=== PATIENT | female | born 1990 | race Caucasian/White ===

== ENCOUNTER 2017-02-11 07:33 | Inpatient (IN) | payer OTHER ==
[2017-02-11] MEDS ORDERED: CITRIC ACID/SODIUM CITRATE ORAL SOLN 15 ML UDCUP ONE (07:59)
[2017-02-11] MEDS ORDERED: MISOPROSTOL 0.2 MG TABLET ONE (07:59)
[2017-02-11] MEDS ORDERED: CEFAZOLIN 2 GM/D5W RTU 2 GM/50 ML RTUPB IV ONE (08:00)
[2017-02-11] MEDS ORDERED: OXYTOCIN 10 UNIT/ML VIAL ONE (08:10)
[2017-02-11] MEDS ORDERED: OXYTOCIN/NORMAL SALINE 20 UNIT/1,000 ML RTUINJ ONE (08:11)
[2017-02-11] MEDS ORDERED: ONDANSETRON HCL INJ/PF 4 MG/2 ML SDV ONE (08:11)
[2017-02-11] MEDS ORDERED: PHENYLEPHRINE HCL INJ/PF 10 MG/1 ML SDV ONE (08:11)
[2017-02-11] MEDS ORDERED: ACETAMINOPHEN 100 ML IV ONE (08:11)
[2017-02-11] MEDS ORDERED: FENTANYL CITRATE INJ/PF 100 MCG/2 ML AMPUL ONE (08:17)
[2017-02-11 08:36] LABS: APPEARANCE,URINE SLIGHTLY-CLOUDY; BILIRUBIN,URINE NEGATIVE (NEGATIVE); GLUCOSE, URINE NEGATIVE (NEGATIVE); KETONES,URINE NEGATIVE (NEGATIVE); LEUKOCYTE ESTERASE,URINE SMALL (NEGATIVE); NITRITE,URINE NEGATIVE (NEGATIVE); PROTEIN,URINE NEGATIVE (NEGATIVE); URINE SPECIFIC GRAVITY 1.006; UROBILINOGEN,URINE NEGATIVE mg/dL (<2.0)
[2017-02-11 08:44] LABS: ABSOLUTE BASOPHILS # (AUTO) 0.1 10^3/uL (0.0-0.2); ABSOLUTE LYMPHOCYTES (AUTO) 2.2 10^3/uL (0.5-4.7); ABSOLUTE MONOCYTES (AUTO) 0.8 10^3/uL (0.1-1.4); ABSOLUTE NEUT (AUTO) 9.8 10^3/uL (1.7-8.2); BASOPHILS % (AUTO) 0.7 % (0-2); EOSINOPHILS % (AUTO) 0.1 % (0-6); HEMATOCRIT 32.2 % (36.0-47.0); HGB HCT DIFFERENCE 0.8; LYMPHOCYTES % (AUTO) 17.1 % (13-45); MEAN CORPUSCULAR HEMOGLOBIN 30.4 pg (27.0-33.4); MEAN CORPUSCULAR HGB CONC 34.1 g/dL (32.0-36.0); MEAN CORPUSCULAR VOLUME 89 fl (80-97); MONOCYTES % (AUTO) 6.3 % (3-13); RED BLOOD COUNT 3.61 10^6/uL (3.72-5.28); RED CELL DISTRIBUTION WIDTH 13.8 % (11.5-14.0); SEGMENTED NEUTROPHILS % (AUTO) 75.8 % (42-78); WHITE BLOOD COUNT 12.9 10^3/uL (4.0-10.5)
[2017-02-11 08:54] LABS: URINE BARBITURATES SCREEN NEGATIVE; URINE METHADONE SCREEN NEGATIVE; URINE OPIATES LOW NEGATIVE; URINE PHENCYCLIDINE SCREEN NEGATIVE
[2017-02-11] MEDS ORDERED: MEASLES,MUMPS&RUBELLA VACC/PF 0.5 ML VIAL SUBCUT PRN ×2 (09:56→13:00)
[2017-02-11] MEDS ORDERED: HYDROMORPHONE HCL INJ/PF 2 MG/ML AMPULE IV PRN (09:56)
[2017-02-11] MEDS ORDERED: ACETAMINOPHEN 100 ML IV PRN (09:56)
[2017-02-11] MEDS ORDERED: PROMETHAZINE HCL INJ 25 MG/1 ML VIAL IV PRN ×2 (09:56→13:00)
[2017-02-11] MEDS ORDERED: RINGERS SOLUTION,LACTATED 1,000 ML IV PRN (09:56)
[2017-02-11] MEDS ORDERED: SIMETHICONE 80 MG TAB.CHEW PO PRN ×2 (09:56→13:30)
[2017-02-11] MEDS ORDERED: ACETAMINOPHEN 325 MG TABLET PO PRN (09:56)
[2017-02-11] MEDS ORDERED: OXYTOCIN/NORMAL SALINE 20 UNIT/1,000 ML RTUINJ IV PRN (09:56)
[2017-02-11] MEDS ORDERED: DIPH/PERTUSS(ACELL)/TETANUS VAC/PF 0.5 ML SYR (>=10YO) IM PRN ×2 (09:56→13:00)
[2017-02-11] MEDS ORDERED: KETOROLAC TROMETHAMINE INJ/PF 30 MG/1 ML SDV IV SCH (10:00)
[2017-02-11] MEDS ORDERED: KETOROLAC TROMETHAMINE INJ/PF 30 MG/1 ML SDV ONE (10:16)
--- NOTE | 2017-02-11 10:30 | Delivery Summary ---
Del Sum A-C Datetime Report Generated by CPN: 02/11/2017 10:30 DELIVERY PERSONNEL DELIVERY PERSONNEL: [id number] Delivery Doctor:: Kathleen Allison MD Anesthesiologist:: Torsten Bullock MD GROUP SOCIAL WORKER:: Jovanny Vladimir Labor and Delivery Nurse:: Rebecca Florez RN Neonatal Nurse Practitioner:: CHIKIS Álvarez Nursery Nurse:: Fe Paez RN Bacteriologist Food/DISPATCH SUPERVISOR: ST Tariq Bacteriologist Food/DISPATCH SUPERVISOR: Pasquale Mckay ST MATERNAL INFORMATION Delivery Anesthesia: Spinal Medications After Delivery: Pitocin Bolus-Please Comment; Pitocin Drip 20 Units/1000ml NSS Estimated Blood Loss (ml): 600 Maternal Complications: None LABOR SUMMARY EDC: 02/16/2017 00:00 No. Babies in Womb: 1 Attempted: No Labor Anesthesia: None LABOR INFORMATION Reason for Induction: Not Applicable Onset of Labor: 02/11/2017 04:30 Oxytocin: N/A Group B Beta Strep: positive Antibiotics # of Doses: 1 Antibiotics Time of Last Dose: 850 Name of Antibiotic Given: Ancef Steroids Given: None Reason Steroids Not Administered: Not Applicable MEMBRANES Membranes Rupture Method: Artificial Rupture of Membranes: 02/11/2017 09:16 Length of Rupture (hr): 0.02 Amniotic Fluid Color: Clear Amniotic Fluid Amount: Small Amniotic Fluid Odor: Normal STAGES OF LABOR Stage 3 hr: 0 Stage 3 min: 1 Total Time in Labor hr: 4 Total Time in Labor min: 48 VAGINAL DELIVERY Episiotomy: None Laceration Extension: N/A Laceration Type: None Laceration Repair: Not Applicable CSECTION DELIVERY Primary Indication: Breech Presentation CSection Urgency: Non-Scheduled CSection Incidence: Primary Labor: Labor Elective: Nonelective CSection Incision: Lower Uterine Transverse BABY A INFORMATION Delivery Date/Time: 02/11/2017 09:17 Method of Delivery: Born in Route : No : N/A Forceps: N/A Vacuum Extraction: N/A PRESENTATION/POSITION BABY A Presentation: Breech Cephalic Presentation: N/A Breech Presentation: Harvey PLACENTA INFORMATION BABY A Placenta Delivery Time : 02/11/2017 09:18 Placenta Method of Delivery: Manual Removal Placenta Status: Delivered SCORES BABY A Heart Rate 1 min: >100 bpm Resp Effort 1 min: Good Cry Reflex Irritability 1 min: Cough or Sneeze or Pulls Away Muscle Tone 1 min: Active Motion Color 1 min: Body [place], Extremities Blue SCORE 1 MIN: 9 Heart Rate 5 min: >100 bpm Resp Effort 5 min: Good Cry Reflex Irritability 5 min: Cough or Sneeze or Pulls Away Muscle Tone 5 min: Active Motion Color 5 min: Body [place], Extremities Blue SCORE 5 MIN: 9 INFANT INFORMATION BABY A Gestational Age at Delivery: 39.2 Gestational Status: Full Term- 39- 40.6 Weeks Outcome : Liveborn Infant Condition : Stable Sex: Male IDENTIFICATION BABY A Infant Verification Date/Time: 02/11/2017 09:07 ID Band Number: [id number] Mother's Name Verified: Yes Infant RN Verifying Infant: A. Florez RN M Bret RN WEIGHT/LENGTH BABY A Birthweight (gm): 3215 Infant Weight (lb): 7 Weight (oz): 1 Infant Length (in): 19.50 Infant Length (cm): 49.53 CORD INFORMATION BABY A No. Cord Vessels: 3 Nuchal Cord : N/A True Knot: 1 Suction: Mouth; Nose ASSESSMENT BABY A Infant Complications: None Physical Findings at Delivery: Within Normal Limits Infant Respirations: Appears Normal Skin to Skin: No Wireless Cellular Technician/ALS Called : No Care By: Jillian Paez RN Transferred To: [facility]
--- NOTE | 2017-02-11 11:01 | OPERATIVE REPORT E ---
Operative Report NAME: ELIZABETH ROJO : 1990 AGE: 26Y DATE OF SURGERY: 02/11/2017 ROOM: LR200 PREOPERATIVE DIAGNOSIS: Breech presentation, in labor. POSTOPERATIVE DIAGNOSIS: Breech presentation, in labor. OPERATION: Primary section via low transverse uterine incision SURGEON: PAPA GIVENS M.D. FINDINGS: Viable male born. Apgars were 9 and 9. Weight: 7 pounds 1 ounce. BLOOD LOSS: 250. COMPLICATIONS: None. PROCEDURE: The patient was taken to the OR and placed in a supine position. Her spinal had been placed. Her abdomen was prepared and draped in a sterile fashion. Her bladder was drained with a Hawley catheter. A low transverse incision was made and extended down the level of the fascia, which was nicked in the midline. The fascial incision was extended bilaterally using curved Russ scissors. The fascia was off the rectus muscles using sharp and blunt dissection. The rectus muscles were in the midline. The peritoneum was elevated and incised with Metzenbaum scissors. The peritoneal incision was extended superiorly and inferiorly, taking care not to injure the bladder. A bladder blade was placed, the lower uterine segment identified and serosal incision made, creating a bladder flap. A low transverse uterine incision was made and extended with fingertips. The baby was delivered in breech fashion without problems. The cord was doubly clamped and cut, and the was passed off to the blockmason. The placenta was manually extracted with trailing membranes. The uterus was externalized and wiped with a moist lap sponge. The tubes and ovaries were normal. There was a mesonephric cyst on the left tube approximately 2 cm in size. The uterine contents were wiped clean after delivery of the placenta. The incision was then closed with a 0 chromic stitch in a running locking fashion. A second 0 chromic stitch was used to imbricate the first layer. The serosa was closed with a running 2-0 chromic stitch. Hemostasis was good. The pelvis was irrigated and suctioned free of fluid. The uterus was replaced into the abdomen. The abdominal wall peritoneum was closed with a running 2-0 chromic stitch. The subfascial tissues were inspected for bleeding. The fascia was closed with running 0 Vicryl in 2 segments. The wound was irrigated. Waqas layer was closed with a 2-0 plain gut stitch and the skin was closed with a running subcuticular 4-0 undyed Vicryl stitch. Mother and baby are doing well. DICTATING PHYSICIAN: PAPA GIVENS M.D. [id number] PHY#: [id number] ID: [id number] JOB#: [id number] ACCT: [id number] cc:PAPA GIVENS M.D. >
--- NOTE | 2017-02-11 11:01 | Admission Physical ---
Datetime Report Generated by CPN: 02/11/2017 11:00 CURRENT ADMISSION Chief Complaint: Uterine Contractions Chief Complaint Other: breech Indication for Induction: Not Applicable Admit Impression- Other: breech Admit Plan: Admit to Unit; Initiate Section Protocol ALLERGIES Medication Allergies: No Medication Allergies: No Known Allergies (02/11/2017) Latex: No Latex Allergies OBSTETRICAL HISTORY EDC: 02/16/2017 00:00 : 1 Para: 0 Term: 0 : 0 SAB: 0 IAB: 0 Ectopic: 0 Livin Cesareans: 0 VBACs: 0 Multiple Births: 0 Gestational Diabetes: No Rh Sensitization: No Incompetent Cervix: No NIKKY: No Infertility: No ART Treatment: No Uterine Anomaly: No IUGR: No Hx Previous C/S: No Macrosomia: No Hx Loss/Stillborn: No PIH: No Hx : No Placenta Previa/Abruption: No Depression/PP Depression: No PTL/PROM: No Post Hemorrhage: No Current Procedures: Ultrasound Obstetrical History Comments: G1: current, breech SEE RECORDS Alcohol: No Marijuana : No Cocaine: No Other Illicit Drugs: No Cigarettes: Never Smoker. [id number] MEDICAL HISTORY Diabetes: No Blood Transfusion: No Pulmonary Disease (Asthma, TB): No Breast Disease: No Hypertension: No Social Media Senior Associate Surgery: No Heart Disease: No Hosp/Surgery: No Autoimmune Disorder: No Anesthetic Complications: No Kidney Disease: No Abnormal Pap Smear: No Neuro/Epilepsy: No Psychiatric Disorders: No Other Medical Diseases: No Hepatitis/Liver Disease: No Significant Family History: No Varicosities/Phlebitis: No Trauma/Violence : No Thyroid Dysfunction: No INFECTIOUS HISTORY Gonorrhea: No Genital Herpes: No Chlamydia: No Tuberculosis: No Syphilis: No Hepatitis: No HIV/AIDS Exposure: No Rash or Viral Illness: No HPV: No PHYSICAL EXAM General: Normal HEENT: Normal Neurologic: Normal Thyroid: Normal Heart: Normal Lungs: Normal Breast: Deferred Back: Normal Abdomen: Normal Genitourinary Exam: Normal Extremities: Normal DTRs: Normal Pelvic Type: Adequate Vital Signs: Reviewed VAGINAL EXAM Dilatation: 6 MEMBRANES Pooling: Negative Membranes: Intact FETUS A EGA: 39.2 Monitoring: External US FHR- Baseline: 140 Variability: Moderate 6-25bpm Decelerations: None FHR Category: Category I Presentation: Breech Admit Comment: Plan a primary c section for breech PLANS FOR LABOR AND DELIVERY Labor and Delivery: None Pain Management: Spinal Feeding Preference: Breast Benefit of Breast Feed Discussed: Yes Circumcision: Yes INFORMED CONSENT Signature: with User ID: [email or web address]
[2017-02-11] MEDS: PRENATAL VITAMIN W-O CA NO5/FE FUMARATE/FA CAPSULE PO SCH (11:54)
[2017-02-11] MEDS: DOCUSATE SODIUM 100 MG CAPSULE PO SCH ×2 (11:54→17:52)
[2017-02-11] MEDS: OXYCODONE-ACETAMINOPHEN 5-325 MG TABLET PO PRN ×3 (11:56→23:52)
[2017-02-11] MEDS ORDERED: IBUPROFEN 800 MG TABLET PO SCH (12:00)
[2017-02-11] MEDS: KETOROLAC TROMETHAMINE INJ/PF 30 MG/1 ML SDV IV SCH (17:52)
[2017-02-12] MEDS: KETOROLAC TROMETHAMINE INJ/PF 30 MG/1 ML SDV IV SCH (02:17)
[2017-02-12] MEDS: OXYCODONE-ACETAMINOPHEN 5-325 MG TABLET PO PRN ×4 (05:50→22:35)
[2017-02-12 07:27] LABS: HEMATOCRIT 31.2 % (36.0-47.0); HEMOGLOBIN 10.3 g/dL (12.0-15.5); HGB HCT DIFFERENCE -0.3; MEAN CORPUSCULAR HEMOGLOBIN 29.8 pg (27.0-33.4); MEAN CORPUSCULAR VOLUME 91 fl (80-97); RED BLOOD COUNT 3.44 10^6/uL (3.72-5.28); RED CELL DISTRIBUTION WIDTH 13.7 % (11.5-14.0); WHITE BLOOD COUNT 12.9 10^3/uL (4.0-10.5)
--- NOTE | 2017-02-12 08:37 | PDOC PROGRESS REPORT ---
Subjective-OB Subjective: Post Delivery Day: 26 year old. Denies any needs at this time Physical Exam (OB) Vital Signs: Temp Pulse Resp BP Pulse Ox 97.9 F 78 17 120/74 99 02/12/17 08:00 02/12/17 08:00 02/12/17 08:00 02/12/17 08:00 02/12/17 08:00 Intake & Output 02/11/17 02/12/17 02/13/17 06:59 06:59 06:59 Intake Total 1100 Output Total 1950 Balance -850 Weight 82.1 kg - PIH/Pre-Eclampsia DTR's: 2 + Clonus: Negative Headache: Absent Epigastric Pain: No Visual Changes: No - Dressing Removed: No Incision: Dressing - Lochia Lochia Amount: Small 10-25 ml Lochia Color: Rubra/Red - Abdomen Description: Soft, Flat Hernia Present: No Bowel Sounds: Normoactive Flatus Presence: Present Stool: No Fundal Description: Firm, Midline Fundal Height: u/u - u/2 Objective-Diagnostic Laboratory: 02/12/17 06:47 02/11/17 02/11/17 02/11/17 07:37 08:31 08:31 WBC 12.9 H RBC 3.61 L Hgb 11.0 L Hct 32.2 L MCV 89 MCH 30.4 MCHC 34.1 RDW 13.8 Plt Count 234 Seg Neutrophils % 75.8 Lymphocytes % 17.1 Monocytes % 6.3 Eosinophils % 0.1 Basophils % 0.7 Absolute Neutrophils 9.8 H Absolute Lymphocytes 2.2 Absolute Monocytes 0.8 Absolute Eosinophils 0.0 Absolute Basophils 0.1 Urine Color STRAW Urine Appearance SLIGHTLY-CLOUDY Urine pH 6.0 Ur Specific [place] 1.006 Urine Protein NEGATIVE Urine Glucose (UA) NEGATIVE Urine Ketones NEGATIVE Urine Blood SMALL H Urine Nitrite NEGATIVE Ur Leukocyte Esterase SMALL H Blood Type O POSITIVE Antibody Screen NEGATIVE 02/12/17 06:47 WBC 12.9 H RBC 3.44 L Hgb 10.3 L Hct 31.2 L MCV 91 MCH 29.8 MCHC 33.0 RDW 13.7 Plt Count 224 Seg Neutrophils % Lymphocytes % Monocytes % Eosinophils % Basophils % Absolute Neutrophils Absolute Lymphocytes Absolute Monocytes Absolute Eosinophils Absolute Basophils Urine Color Urine Appearance Urine pH Ur Specific [place] Urine Protein Urine Glucose (UA) Urine Ketones Urine Blood Urine Nitrite Ur Leukocyte Esterase Blood Type Antibody Screen
[2017-02-12] MEDS: DOCUSATE SODIUM 100 MG CAPSULE PO SCH ×2 (09:37→17:58)
[2017-02-12] MEDS: PRENATAL VITAMIN W-O CA NO5/FE FUMARATE/FA CAPSULE PO SCH (09:37)
[2017-02-12] MEDS: IBUPROFEN 800 MG TABLET PO SCH ×2 (11:23→17:58)
[2017-02-13] MEDS: IBUPROFEN 800 MG TABLET PO SCH ×2 (00:16→05:55)
[2017-02-13] MEDS: OXYCODONE-ACETAMINOPHEN 5-325 MG TABLET PO PRN ×2 (04:13→10:33)
--- NOTE | 2017-02-13 09:02 | PDOC DISCHARGE SUMMARY ---
Final Diagnosis Discharge Date: 02/13/17 - Final Diagnosis (1) Breech presentation Is this a current diagnosis for this admission?: Yes (2) Delivery by elective caesarean section Is this a current diagnosis for this admission?: Yes (3) Positive GBS test Is this a current diagnosis for this admission?: Yes Discharge Data - Discharge Medication Home Medications: Pnv No.122/Iron/Folic Acid [ Multi Tablet] 1 tab PO DAILY 02/11/17 Docusate Sodium [Colace 100 mg Capsule] 100 mg PO BID #60 capsule 02/13/17 Ferrous Sulfate [Feosol 325 mg Tablet] 325 mg PO BID #30 tab 02/13/17 Ibuprofen [Motrin 800 mg Tablet] 800 mg PO Q6 #60 tablet 02/13/17 Oxycodone HCl/Acetaminophen [Percocet 5-325 mg Tablet] 2 tab PO Q4HP PRN #30 tablet 02/13/17 Gestational Age: 39.2 Reason(s) for Admission: Onset of Labor, Group B Strep Positive Procedures: NST Intrapartum Procedure(s): : Low Cervical, Transverse - [place] Data Baby 1 Male at 1 minute: 9 at 5 minutes: 9 Weight: 3215 kg Home with Mother: Yes Complications: No - Diagnosis Test Laboratory: Temp Pulse Resp BP Pulse Ox 97.8 F 74 16 120/74 96 02/13/17 07:51 02/13/17 07:51 02/13/17 07:51 02/13/17 07:51 02/13/17 07:51 02/11/17 02/11/17 02/12/17 07:37 08:31 06:47 RBC 3.61 L 3.44 L Hgb 11.0 L 10.3 L Hct 32.2 L 31.2 L Urine Opiates Screen NEGATIVE - Discharge information/Instructions Discharge Activity: Activity As Tolerated, Pelvic Rest, No tub bath Discharge Diet: Regular Disposition: HOME, SELF-CARE Follow up with: [facility] in: 1, Days
[2017-02-13] MEDS: PRENATAL VITAMIN W-O CA NO5/FE FUMARATE/FA CAPSULE PO SCH (09:06)
[2017-02-13] MEDS: DOCUSATE SODIUM 100 MG CAPSULE PO SCH (09:06)
[2017-02-13 10:26] VITALS: BP 120/74
== END 2017-02-13 12:15 | disposition home or self-care (01) | DRG 766 ==
LOC: LC 07:33 → LR 07:57 → 2S 10:59
PROVIDERS: ADMIT Obstetrics & Gynecology; ATTEND Obstetrics & Gynecology
PROC: 10D00Z1 Extraction of Products of Conception, Low, Open Approach (ICD-10-PCS; principal; 2017-02-11)
DX: O32.1XX0 Maternal care for breech presentation, not applicable or unspecified (principal); O99.824 Streptococcus B carrier state complicating childbirth; Z3A.39 39 weeks gestation of pregnancy; Z37.0 Single live birth
CPT/HCPCS: 1961; 36415; 80307; 81005; 85025; 85027; 86592; 86850; 86900; 86901; 94799; J0131; J0690; J1170; J1885; J2370; J2405; J2550; J2590; J3010; J3490; J7120